=== PATIENT | female | born 2000 | race Hispanic/Latino ===

== ENCOUNTER 2022-07-09 16:32 | Emergency (ER) | payer MEDICAID ==
[~2022-07-09] VITALS: Ht 167.6 cm; Wt 54.4 kg
[2022-07-09 17:03] VITALS: BP 111/72
[2022-07-09] MEDS ORDERED: ZYRTEC10 MG PO (17:37)
[2022-07-09] MEDS ORDERED: MEDDOSEPAK PO (17:37)
[2022-07-09] MEDS ORDERED: AMOXICILLIN875 MG PO (17:37)
[2022-07-09 17:42] VITALS: BP 111/72
== END 2022-07-09 17:47 | disposition home or self-care (01) ==
LOC: ED 16:32
DX: J30.9 Allergic rhinitis, unspecified (principal); H66.91 Otitis media, unspecified, right ear

== ENCOUNTER 2024-01-20 16:46 | Emergency (ER) | payer SELFPAY ==
[~2024-01-20] VITALS: Ht 167.6 cm; Wt 63.5 kg
[2024-01-20] VITALS (8 sets, daily range): BP systolic 110–118; BP diastolic 59–74
[~2024-01-20 16:46] MED LIST: AMOXICILLIN875 MG PO; MEDDOSEPAK PO; ZYRTEC10 MG PO
[2024-01-20] MEDS ORDERED: FAMOTIDINE 10MG/ML 2ML SDV IV ONE (17:05)
[2024-01-20] MEDS ORDERED: ALUM & MAG HYDROX-SIMETHICONE 30 ML PO ONE (17:05)
[2024-01-20] MEDS ORDERED: SODIUM CHLORIDE 0.9% 1,000 ML IV ONE (17:05)
[2024-01-20] MEDS ORDERED: LIDOCAINE VISCOUS 2% 15 ML UDC PO ONE (17:05)
[2024-01-20 17:30] LABS: URINE BILIRUBIN - DIPSTICK Negative (NEGATIVE); URINE BLOOD DIPSTICK Trace-intact (NEGATIVE); URINE GLUCOSE - DIPSTICK Negative (NEGATIVE); URINE KETONE Negative (NEGATIVE); URINE NITRITE - DIPSTICK Negative (Negative); URINE PROTEIN - DIPSTICK Negative (NEG-TRACE); URINE UROBILINOGEN - DIPSTICK 0.2 E.U./dL (0.2)
[2024-01-20 17:30] LABS: BASO% 0.1 % (0-3); EOS% 1.3 % (0-8); HEMATOCRIT 37.3 % (37.0-47.0); HEMOGLOBIN 11.8 g/dl (12.0-16.0); IMMATURE GRANULOCYTES 0.1 % (0.0-5.0); LYMPH% 39.4 % (15-41); MEAN CELL VOLUME 94.4 fL CALC (80.0-100.0); MEAN CORPUSCULAR HGB 29.9 pG CALC (26.0-32.0); MEAN CORPUSCULAR HGB CONC 31.6 g/dL CAL (32.0-36.0); MONO% 9.2 % (2-13); NEUT# 3.42 thou/uL (2.00-7.15); NEUT% 49.9 % (42-76); RED BLOOD COUNT 3.95 mill/uL (4.20-5.60); RED CELL DISTRI WIDTH 13.7 % (11.5-15.5)
[2024-01-20 17:31] LABS: URINE COLOR Yellow; URINE LEUK ESTERASE Small (NEGATIVE)
[2024-01-20 17:37] LABS: URINE RBC 0-2 RBC/hpf (0-5)
[2024-01-20 17:44] LABS: ALBUMIN 4.7 g/dL (3.2-5.0); BILIRUBIN, TOTAL 0.7 mg/dL (0.02-1.3); CREATININE 0.9 mg/dL (0.5-1.0); POTASSIUM 4.4 mmol/l (3.5-5.1); TOTAL PROTEIN 8.5 g/dL (6.3-8.2)
[2024-01-20] MEDS ORDERED: PROTONIX40 M2 PO (20:13)
[2024-01-20] MEDS ORDERED: MACROBID100 M1 PO (20:19)
== END 2024-01-20 20:30 | disposition home or self-care (01) | DRG 392 ==
LOC: ED 16:46
PROVIDERS: Nurse Practitioner
DX: K29.70 Gastritis, unspecified, without bleeding (principal); N39.0 Urinary tract infection, site not specified
CPT/HCPCS: Q9967